=== PATIENT | female | born 1995 | race Caucasian/White ===

== ENCOUNTER 2019-11-23 20:27 | Emergency (ER) | payer OTHER ==
[~2019-11-23] VITALS: Ht 170.2 cm; Wt 68.0 kg
[2019-11-23 20:36] VITALS: Ht 170.2 cm; Wt 68.0 kg
[2019-11-23 20:44] LABS: BILIRUBIN NEGATIVE (NEGATIVE); GLUCOSE NEGATIVE (NEGATIVE); KETONE NEGATIVE (NEGATIVE); NITRITE NEGATIVE (NEGATIVE); SPECIFIC GRAVITY 1.005 (1.005-1.020); UROBILINOGEN NORMAL (NORMAL)
[2019-11-23 20:47] LABS: HCG URINE NEGATIVE (NEGATIVE)
[2019-11-23 20:49] LABS: BACTERIA MODERATE /hpf (NEGATIVE); EPITHELIAL CELLS 0-5 /hpf (0-5); RED CELLS - URINE 0-5 /hpf (0-5); WHITE CELLS - URINE >50 /hpf (NEGATIVE)
[2019-11-23] MEDS ORDERED: MIRALAX17 GM PO (21:04)
[2019-11-23] MEDS ORDERED: MACROBID100 MG PO (21:04)
[2019-11-23 21:48] VITALS: BP 117/85
== END 2019-11-23 21:49 | disposition home or self-care (01) ==
LOC: D.ER 20:27
PROVIDERS: Family Medicine
DX: K59.00 Constipation, unspecified (principal); N39.0 Urinary tract infection, site not specified; R10.9 Unspecified abdominal pain

== ENCOUNTER 2020-01-02 03:30 | Emergency (ER) | payer OTHER ==
[~2020-01-02] VITALS: Ht 170.2 cm; Wt 59.1 kg
[~2020-01-02 03:30] MED LIST: MACROBID100 MG PO; MIRALAX17 GM PO
[2020-01-02 03:36] VITALS: Ht 170.2 cm; Wt 59.1 kg
[2020-01-02 04:11] LABS: UDS - AMPHET POSITIVE QUAL (NEGATIVE); UDS - BARB NEGATIVE QUAL (NEGATIVE); UDS - BENZO NEGATIVE QUAL (NEGATIVE); UDS - COCAINE NEGATIVE QUAL (NEGATIVE); UDS - OPIATE NEGATIVE QUAL (NEGATIVE); UDS - PCP NEGATIVE QUAL (NEGATIVE); UDS - THC POSITIVE QUAL (NEGATIVE)
[2020-01-02 04:14] LABS: HCG URINE NEGATIVE (NEGATIVE)
[2020-01-02 04:15] LABS: BILIRUBIN NEGATIVE (NEGATIVE); GLUCOSE NEGATIVE (NEGATIVE); KETONE NEGATIVE (NEGATIVE); NITRITE POSITIVE (NEGATIVE); UROBILINOGEN NORMAL (NORMAL)
[2020-01-02 04:16] LABS: BACTERIA MANY /hpf (NEGATIVE); EPITHELIAL CELLS 0-5 /hpf (0-5); RED CELLS - URINE 0-5 /hpf (0-5)
[2020-01-02 04:17] LABS: CALCIUM OXALATE CRYSTALS 0-5 /hpf (NONE SEEN)
[2020-01-02] MEDS ORDERED: MACROBID100 MG PO (04:18)
[2020-01-02] MEDS ORDERED: FLAGYL500 MG PO (05:23)
[2020-01-02] MEDS ORDERED: ULTRAM50 MG PO (05:37)
[2020-01-02 05:52] VITALS: BP 131/84
== END 2020-01-02 05:54 | disposition home or self-care (01) ==
LOC: D.ER 03:30
PROVIDERS: Family Medicine
DX: T14.8XXA Other injury of unspecified body region, initial encounter (principal); N39.0 Urinary tract infection, site not specified; Y04.8XXA Assault by other bodily force, initial encounter; Y93.9 Activity, unspecified; Y92.9 Unspecified place or not applicable; M54.2 Cervicalgia; M25.512 Pain in left shoulder; M25.562 Pain in left knee; M25.561 Pain in right knee; R51 Headache; M79.641 Pain in right hand

== ENCOUNTER 2020-01-14 14:49 | Inpatient (IN) | payer OTHER ==
[~2020-01-14] VITALS: Ht 170.2 cm; Wt 68.6 kg
[~2020-01-14 14:49] MED LIST changes: +FLAGYL500 MG PO; +ULTRAM50 MG PO
--- NOTE | 2020-01-14 15:18 | NUR ---
PT REPORTS TAKING A FRIENDS XANAX YESTERDAY BEFORE BREAKING OUT INTO A FEW HIVES. TODAY THE HIVES HAVE PROGRESSED TO ALL OVER HER BODY. PT IS ALSO REPORTING PAIN IN BILATERAL HANDS AND FEELING LIGHT HEADED. PT REPORTS BLACKING OUT SEVERAL TIMES SINCE LAST EVENING.
--- NOTE | 2020-01-14 15:40 | NUR ---
OPERATIONS PROGRAM MANAGER NOTIFIED OF NEED FOR MENTAL HEALTH ASSESSMENT.
--- NOTE | 2020-01-14 15:44 | NUR ---
PT IS REFUSING BLOOD DRAW BY LAB AT THIS TIME, ER PROVIDER NOTIFIED.
--- NOTE | 2020-01-14 15:47 | NUR ---
IN ROOM TO ATTEMPT IV START, PT REFUSING IV, ER PROVIDER NOTIFIED.
[2020-01-14 16:10] LABS: BASOPHILS 0.1 % (0-2); EOSINOPHILS 0.7 % (0-7); HEMATOCRIT 51.6 % (36.0-48.0); HEMOGLOBIN 18.1 g/dL (12-16); IMMATURE GRANULOCYTES 0.4 % (0-5); LYMPHOCYTES 11.8 % (15-50); MCH 31.5 pg (26.0-34.0); MCHC 35.1 g/dL (31.0-37.0); MCV 89.7 fL (80.0-100.0); MEAN PLATELET VOLUME 11.7 fL (7.4-10.4); MONOCYTES 1.8 % (2-11); NEUTROPHILS 85.2 % (40-80); PLATELET COUNT 265 10x3/uL (130-400); RBC 5.75 10x6/uL (4.00-5.40)
[2020-01-14 16:29] LABS: ANION GAP 15.6 mmol/L (8-16); CALCIUM 8.8 mg/dL (8.5-10.1); CARBON DIOXIDE 23.7 mmol/L (21.0-32.0); CREATININE - SERUM 1.5 mg/dL (0.6-1.3); POTASSIUM - SERUM 3.3 mmol/L (3.5-5.1)
[2020-01-14 16:32] LABS: HCG SERUM NEGATIVE (NEGATIVE)
[2020-01-14 16:35] LABS: ALBUMIN 3.3 g/dL (3.4-5.0); BILIRUBIN - TOTAL 3.88 mg/dL (0.2-1.3); PROTEIN - SERUM 6.7 g/dL (6.4-8.2)
[2020-01-14 16:39] LABS: UDS - AMPHET POSITIVE QUAL (NEGATIVE); UDS - BARB NEGATIVE QUAL (NEGATIVE); UDS - BENZO POSITIVE QUAL (NEGATIVE); UDS - COCAINE NEGATIVE QUAL (NEGATIVE); UDS - OPIATE NEGATIVE QUAL (NEGATIVE); UDS - PCP NEGATIVE QUAL (NEGATIVE); UDS - THC POSITIVE QUAL (NEGATIVE)
[2020-01-14 18:26] VITALS: BP 101/64
--- NOTE | 2020-01-14 19:05 | NUR ---
URINE TO LAB
[2020-01-14 19:18] LABS: BILIRUBIN NEGATIVE (NEGATIVE); GLUCOSE NEGATIVE (NEGATIVE); KETONE SMALL mg/dL (NEGATIVE); NITRITE NEGATIVE (NEGATIVE); SPECIFIC GRAVITY 1.015 (1.005-1.020); UROBILINOGEN NORMAL (NORMAL)
--- NOTE | 2020-01-14 22:58 | NUR ---
PT REFUSING LAB DRAW.
--- NOTE | 2020-01-14 23:02 | NUR ---
DR POLK NOTIFIED AND REVIEWED PT's BEHAVIOR AND ASSESSMENT RESULTS. PT IS A LOW RISK PER DR POLK, DR POLK STATED TO GIVE RESOURCES TO PT AT TIME OF DISCHARGE. NO FURTHER ORDERS AT THIS TIME. RESOURCES REVIEWED WITH PT AND HE VERBALIZED UNDERSTANDING.
[2020-01-15] VITALS: BP 96/50
--- NOTE | 2020-01-15 00:20 | NUR ---
RECEIVED TO ROOM, ACCOMPANIED BY STAFF AND S/O. A&O X 4, AMBULATES INDEPENDENTLY. DENIES PAIN. REPORTS ITCHING HAS NEARLY CEASED. SOME REDDENED RASH-LIKE AREAS GENERALIZED OVER BODY. PT REPORTS IT IS SIGNIFICANTLY BETTER THAN WHEN SHE FIRST WOKE UP WITH RASH PRIOR TO ARRIVAL TO HOSPITAL. VS STABLE. DENIES NEEDS AT THIS TIME. CTM.
[2020-01-15 01:15] VITALS: Ht 170.2 cm; Wt 68.6 kg
[2020-01-15 04:00] VITALS: BP 92/47
--- NOTE | 2020-01-15 04:00 | NUR ---
NO TELEMETRY MONITORS AVAILABLE FOR THIS PT PER EXHIBIT DESIGNERRONALD.
--- NOTE | 2020-01-15 08:09 | NUR ---
resting in bed, eyes closed, no distress noted, iv infusing per rac, needs tele, cont to monitor
[2020-01-15 08:21] VITALS: BP 96/47
[2020-01-15 11:49] VITALS: BP 95/45
--- NOTE | 2020-01-15 13:41 | NUR ---
LAB UNABLE TO DRAW BLOOD, PT CONT TO REFUSE
[2020-01-15] MEDS ORDERED: MEDROL DOSE PACK4 MG PO (14:38)
--- NOTE | 2020-01-15 16:03 | MORECARE ---
CASE MANAGEMENT DISCHARGE SUMMARY PATIENT: ADRIA PATIÑO UNIT: [id number] ADM DATE: 01/14/20 AGE: 24 : [birth year] SEX: F ROOM/BED: D.2209 AUTHOR: ZEKE SIDHU PHYSICIAN: REFERRING PHYSICIAN: ELINA DONALD MD DATE OF SERVICE: 01/15/20 Discharge Plan Patient Name: ADRIA PATIÑO [facility] [facility] 1995 Planned Disposition: Home Anticipated Discharge Date: Discharge Date: Expected LOS: Initial Reviewer: [email or web address] Initial Review Date: 01/15/2020 Generated: 01/15/20 5:03 pm Patient Name: ADRIA PATIÑO Page 20108 at 1603 All edits/amendments must be made on the electronic document DICTATION DATE: 01/15/201602 BOATBUILDER APPRENTICE WOOD: YELENA 01/15/20 160 RPT#: [id number] DC DATE: STATUS: ADM IN [facility] [address] [place] [address] END OF REPORT
--- NOTE | 2020-01-15 16:12 | MORECARE ---
CASE MANAGEMENT DISCHARGE SUMMARY PATIENT: ADRIA PATIÑO UNIT: [id number] ADM DATE: 01/14/20 AGE: 24 : [birth year] SEX: F ROOM/BED: D.2209 AUTHOR: NAHUM,DOC PHYSICIAN: REFERRING PHYSICIAN: ELINA DONALD MD DATE OF SERVICE: 01/15/20 Discharge Plan Patient Name: ADRIA PATIÑO Facility: [facility]:[place] : 1995 Planned Disposition: Home Anticipated Discharge Date: Discharge Date: Expected LOS: Initial Reviewer: [email or web address] Initial Review Date: 01/15/2020 Generated: 01/15/20 5:11 pm Comments DCP- Discharge Planning Updated by [email or web address]: Olive Vega on 01/15/20 3:[address] Patient Name: ADRIA PATIÑO Admission Status: ER Accout number: [id number] Admission Date: 01-14-2020 : 1995 Admission Diagnosis:DEHYDRATION Attending: GENA DONALD Current LOS: 1 Anticipated DC Date: Planned Disposition: Home Primary Insurance: [employer] MANAGED MEDICAID Discharge Planning Comments: CM met with patient to complete initial dc planning assessment. CM educated patient on the CM role and verbal consent given by patient to complete assessment. Patient lives at home with her family. At discharge patient plans to return home and feels this is a safe discharge. CM discussed availability of home health, rehab services, and medical equipment. She is independent with her care at home. She states she feels safe. Rudy is at bedside and will be her driver retraining instructor home. Patient denied known discharge needs at this time. CM will continue to follow and will assist as needed with dc plans/needs. Dog License Officer Supervisor: Olive Vega DCPIA - Discharge Planning Initial Assessment Updated by [email or web address]: Olive Vega on 01/15/20 4:03 pm * Is the patient Alert and Oriented? Yes * How many steps to enter\exit or inside your home? * PCP NONE * Pharmacy [facility] * Preadmission Environment Home with Family * ADLs Independent * Equipment None * List name and contact numbers for known caregivers / representatives who currently or will assist patient after discharge: RUDY * Verbal permission to speak to the caregivers and representatives has been obtained from the patient. N/A * Community resources currently utilized None * Additional services required to return to the preadmission environment? No * Can the patient safely return to the preadmission environment? Yes * Has this patient been hospitalized within the prior 30 days at any hospital? No Last DP export: 01/15/20 3:03 p Patient Name: ADRIA PATIÑO Page 33799 at 1612 All edits/amendments must be made on the electronic document DICTATION DATE: 01/15/201611 FOOD SERVICE SPECIALIST: YELENA 01/15/201611 RPT#: [id number] DC DATE: STATUS: ADM IN [facility] [address] [place] [address] END OF REPORT
--- NOTE | 2020-01-15 16:45 | NUR ---
DC IV, TIP INTACT,
--- NOTE | 2020-01-15 17:00 | NUR ---
TAKEN FROM UNIT PER WC TO PRIVATE VEHICLE
== END 2020-01-15 17:00 | disposition home or self-care (01) | DRG 641 ==
LOC: D.ER 14:49 → D.MS 18:56
PROVIDERS: Family Medicine; ADMIT Emergency Medicine; ATTEND Emergency Medicine
DX: E86.0 Dehydration (principal); N17.9 Acute kidney failure, unspecified; R45.851 Suicidal ideations; E87.1 Hypo-osmolality and hyponatremia; E87.6 Hypokalemia; L50.9 Urticaria, unspecified; D75.1 Secondary polycythemia; F15.10 Other stimulant abuse, uncomplicated; F12.10 Cannabis abuse, uncomplicated